=== PATIENT | female | born 1995 | race Caucasian/White ===

== ENCOUNTER 2016-06-11 18:46 | Emergency (ER) | payer OTHER ==
[~2016-06-11] VITALS: Ht 152.4 cm; Wt 47.2 kg
[~2016-06-11 18:46] MED LIST: ACET325 PO; BENZ100 PO; GUAI100L4 PO; PRED20 PO; ZITH250T PO
[2016-06-11 18:50] VITALS: BP 132/80; PULSE 88; RESP 16; TEMP 98.6; O2SAT 99
[2016-06-11] MEDS ORDERED: ACET325 PO (19:00)
[2016-06-11] MEDS ORDERED: ACETAMINOPHEN 325 MG TAB PO ONE (19:45)
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
[2016-06-11] MEDS ORDERED: HYDR-3533 PO (21:55)
[2016-06-11 22:05] VITALS: BP 120/61; PULSE 74; RESP 14; O2SAT 99
== END 2016-06-11 22:21 | disposition home or self-care (01) ==
LOC: PHED 18:46
DX: S00.83XA Contusion of other part of head, initial encounter (principal); S80.12XA Contusion of left lower leg, initial encounter; S80.11XA Contusion of right lower leg, initial encounter; Y04.2XXA Assault by strike against or bumped into by another person, initial encounter
CPT/HCPCS: 70450; 70486; 72125

== ENCOUNTER 2016-12-19 22:21 | Emergency (ER) | payer OTHER ==
[~2016-12-19] VITALS: Ht 157.5 cm; Wt 48.3 kg
[~2016-12-19 22:21] MED LIST changes: -ACET325 PO; -BENZ100 PO; -GUAI100L4 PO; +HYDR-3533 PO; -PRED20 PO; -ZITH250T PO
[2016-12-19 22:27] VITALS: BP 113/57; PULSE 83; RESP 20; TEMP 98.9; O2SAT 99
[2016-12-19 22:45] LABS: BLOOD, URINE NEG (NEG); GLUCOSE,URINE NEG (NEG); KETONE, URINE NEG (NEG)
[2016-12-19 22:46] LABS: NITRITE,URINE POS (NEG)
[2016-12-19 22:49] LABS: URINE COLOR YELLOW (YELLW/STRAW)
[2016-12-19 22:50] LABS: BACTERIA, URINE MANY /hpf; COMMENT (UR) CULTURE INDICATED; CULTURE IF INDICATED CULTURE INDICATED; SQUAMOUS EPITHELIAL CELL URINE > 8 /hpf (0-5)
[2016-12-20] MEDS ORDERED: MACR100C2 PO (03:26)
[2016-12-20] MEDS ORDERED: IBUP-232 PO (03:26)
[2016-12-20] MEDS ORDERED: PROM25TA10 PO (03:26)
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
[2016-12-20] MEDS ORDERED: NITROFURANTOIN MONOHYD MACROCR 100 MG CAP PO ONE (03:30)
[2016-12-20] MEDS ORDERED: ONDANSETRON ODT 4 MG TAB PO ONE (03:30)
[2016-12-20 03:57] VITALS: BP 97/59
== END 2016-12-20 03:59 | disposition home or self-care (01) ==
LOC: PHED 22:21
DX: N12 Tubulo-interstitial nephritis, not specified as acute or chronic (principal); N30.90 Cystitis, unspecified without hematuria; B96.20 Unspecified Escherichia coli [E. coli] as the cause of diseases classified elsewhere; F17.210 Nicotine dependence, cigarettes, uncomplicated
CPT/HCPCS: 81001; 84703; 87077; 87086; 87186; 99284